=== PATIENT | female | born 1930 | race Caucasian/White ===

== ENCOUNTER 2016-11-16 22:05 | Inpatient (IN) | payer OTHER ==
[~2016-11-16] VITALS: Ht 157.5 cm; Wt 38.6 kg
--- NOTE | ~2016-11-16 | EKG ---
[address] [address] ELECTROCARDIOGRAM REPORT Name: RACHANA SANTILLAN Room #: 438-P ADM IN M.R.#: [id number] Admission: 11/16/16 Attend Phys: Chica Heaton MD Discharge: Date of : [birth year] Report #: [id number] THIS REPORT FOR: //name// [facility] ED Test Date: 2016-11-16 Test Time: 22:15:07 Pat Name: RACHANA SANTILLAN Department: Room: 438 P Gender: F Business Technology Analyst: MARIAM : 1930 Requested By: Radha Logan Order Number: [id number] MD: Doug Kauffman Measurements Intervals [place] Rate: 72 P: 77 AK: 152 QRS: 27 QRSD: 87 T: -18 QT: 387 QTc: 424 Interpretive Statements Sinus rhythm Consider inferior infarct Nonspecific ST and T wave abnormality Compared to ECG 05/15/2016 16:33:33 Myocardial infarct finding now present Sinus tachycardia no longer present Ventricular premature complex(es) no longer present Electronically Signed On 11-19-2016 8:27:28 TELEPHONE SERVICE ADVISER by Doug Kauffman [email or web address] <ELECTRONICALLY SIGNED> By: Doug Kauffman MD, [facility] 11/19/16 0827 2215 2215 Doug Kauffman MD, [facility] /EPI
--- NOTE | ~2016-11-16 | EKG ---
[address] [place] [address] ELECTROCARDIOGRAM REPORT Name: RACHANA SANTILLAN Room #: 438-P ADM IN M.R.#: [id number] Admission: 11/16/16 Attend Phys: Chica Heaton MD Discharge: Date of : [birth year] Report #: [id number] THIS REPORT FOR: //name// [facility] ED Test Date: 2016-11-16 Test Time: 22:17:08 Pat Name: RACHANA SANTILLAN Department: Room: [facility] Gender: F Cable Lacer: MARIAM : 1930 Requested By: Radha Logan Order Number: [id number] MD: Doug Kauffman Measurements Intervals [place] Rate: 69 P: 1 OR: 149 QRS: 16 QRSD: 95 T: -76 QT: 360 QTc: 386 Interpretive Statements Sinus rhythm 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
[~2016-11-16 22:05] MED LIST: ADVAIR 250-501 EACH INH; BISACODYL SUPP10 MG RECTAL; CARVEDILOL6.25 MG PO; CLONAZEPAM 0.50.5 M1 PO; COREG6.25 MG; DIGOXIN125 MCG PO; HYDROCODONE-AP1 EAC6 PO; LEVOTHYROXIN0.075 MG PO; LISINOPRIL10 MG PO; SPIRIVA INH; SPIRIVA18 MCG INH; VENTOLIN HFA 1818 GM INH; XARELTO10 MG
[2016-11-16 22:06] VITALS: BP 132/71
[2016-11-16] MEDS ORDERED: COMBIVENT INH (22:21)
[2016-11-16] MEDS ORDERED: CENTRUM SILVER1 EAC4 PO (22:25)
[2016-11-16] MEDS ORDERED: ASPIR 8181 MG PO (22:25)
[2016-11-16] MEDS ORDERED: FOLIC ACID1 MG PO (22:26)
[2016-11-16] MEDS ORDERED: CALCIUM 500 +1 EAC5 (22:27)
[2016-11-16] MEDS ORDERED: LUTEIN40 MG (22:27)
[2016-11-16 22:40] LABS: ABSOLUTE NEUTROPHILS 3.5 thou/uL (1.4-8.2); BASOPHILS 0.8 % (0.0-2.0); EOSINOPHILS 10.2 % (0.0-3.0); HEMATOCRIT 43.7 % (37.0-47.0); HEMOGLOBIN 14.9 gm/dL (12.0-15.0); LYMPHOCYTES 39.5 % (24.0-44.0); MCH 33.1 pg (26.0-34.0); MCHC 34.2 % (28.0-37.0); MCV 96.8 fL (80.0-100.0); MONOCYTES 10.8 % (1.0-8.0); PLATELET COUNT 212 thou/uL (150-400); POLYS 38.7 % (36.0-66.0); RBC 4.52 mil/uL (4.20-5.00); RDW 13.9 % (10.5-14.5); WBC 8.9 thou/uL (4.0-11.0)
[2016-11-16 22:44] LABS: MANUAL DIFF NO
[2016-11-16 22:48] LABS: ANION GAP 11 mmol/L (7-16); BUN 6 mg/dL (7-18); CALCIUM 9.8 mg/dL (8.5-10.1); CHLORIDE 93 mmol/L (98-107); CO2 29 mmol/L (21-32); CREATININE 0.6 mg/dL (0.6-1.3); GLUCOSE 105 mg/dL (70-99); SODIUM 133 mmol/L (136-145)
[2016-11-16 22:57] LABS: TROPONIN-I < 0.04 ng/mL (<0.04-0.07)
[2016-11-17] VITALS (8 sets, daily range): BP systolic 105–156; BP diastolic 54–76
[2016-11-17 01:03] LABS: URINE BILIRUBIN NEGATIVE (Negative); URINE BLOOD NEGATIVE (Negative); URINE COLOR YELLOW; URINE GLUCOSE-RANDOM* NEGATIVE (Negative); URINE KETONES NEGATIVE (Negative); URINE NITRITE NEGATIVE (Negative); URINE PROTEIN (DIPSTICK) NEGATIVE (Negative); URINE SPECIFIC GRAVITY <= 1.005 (1.003-1.035); URINE UROBILINOGEN 0.2 E.U./dl (0.2-1.0)
[2016-11-17 01:16] LABS: BACTERIA None Seen /HPF (None Seen); CASTS None Seen /LPF (None Seen); CRYSTALS None Seen /LPF (None Seen); SQUAMOUS None Seen /LPF (0-3); URINE RBC None Seen /HPF (0-2); URINE WBC 0-5 Rare /HPF (0-5)
[2016-11-17 06:17] LABS: HEMATOCRIT 37.3 % (37.0-47.0); MCH 32.8 pg (26.0-34.0); MCHC 34.2 % (28.0-37.0); RBC 3.88 mil/uL (4.20-5.00); RDW 13.5 % (10.5-14.5); WBC 7.3 thou/uL (4.0-11.0)
[2016-11-17 06:25] LABS: HEMOGLOBIN 12.7 gm/dL (12.0-15.0)
[2016-11-17 06:40] LABS: CALCIUM 9.3 mg/dL (8.5-10.1); CREATININE 0.4 mg/dL (0.6-1.3); POTASSIUM 4.5 mmol/L (3.5-5.1)
[2016-11-18] VITALS (8 sets, daily range): BP systolic 115–133; BP diastolic 59–78
[2016-11-19 03:15] VITALS: BP 124/72
[2016-11-19 08:00] VITALS: BP 127/69
[2016-11-19 12:00] VITALS: BP 126/77
[2016-11-19 13:08] VITALS: BP 126/77
== END 2016-11-19 14:15 | disposition home or self-care (01) | DRG 896 ==
LOC: ER 22:05 → 4S 23:48 → EROBS 23:48 → 4S 11-17 00:21
PROVIDERS: Emergency Medicine
DX: F10.129 Alcohol abuse with intoxication, unspecified (principal); E43 Unspecified severe protein-calorie malnutrition; I50.32 Chronic diastolic (congestive) heart failure; E46 Unspecified protein-calorie malnutrition; Z68.1 Body mass index [BMI] 19.9 or less, adult; Z60.2 Problems related to living alone; I11.0 Hypertensive heart disease with heart failure; D57.1 Sickle-cell disease without crisis; J44.9 Chronic obstructive pulmonary disease, unspecified; Z96.611 Presence of right artificial shoulder joint; I95.1 Orthostatic hypotension; Z87.891 Personal history of nicotine dependence; Z79.899 Other long term (current) drug therapy; Z79.82 Long term (current) use of aspirin; Z98.890 Other specified postprocedural states; Z95.810 Presence of automatic (implantable) cardiac defibrillator; Z91.81 History of falling
CPT/HCPCS: 10100

== ENCOUNTER 2017-10-10 23:24 | Observation (INO) | payer OTHER ==
[~2017-10-10] VITALS: Ht 162.6 cm; Wt 37.6 kg
--- NOTE | ~2017-10-10 | HC ---
[facility] [place] [address] CONSULTATION Name: RACHANA SANTILLAN Room #: [facility] M.R.#: [id number] Admission: 10/11/17 Attend Phys: Charles Zapata Discharge: Date of : [birth year] Report #: [id number] THIS REPORT FOR: //name// CC: FAM unknown Charles Zapata DATE OF SERVICE: 10/11/2017 REASON FOR CONSULTATION: Right clavicle fracture and L2 compression fracture. HISTORY OF PRESENT ILLNESS: This is an 86-year-old female with frequent falls, previous right shoulder replacement, right hip intertrochanteric fracture and right elbow ORIF. She sustained another fall and has been complaining of pain in her low back, her right clavicle and her right hip. She has been admitted for treatment. PAST MEDICAL HISTORY: Significant for right olecranon proximal fracture, right intertrochanteric hip fracture, treated with IM nail, right shoulder hemiarthroplasty, syncope, and rhabdomyolysis. CURRENT MEDICATIONS: Have been reviewed and are on the chart. PHYSICAL EXAMINATION: GENERAL: This is a frail-appearing female, in no acute distress. She is alert, oriented, pleasant, and cooperative. EXTREMITIES: Examination of the right upper extremity shows her to have extreme tenderness to palpation of her medial clavicle. She has minimal pain with passive range of motion of the shoulder. She is neurologically intact. Examination of the lumbar spine shows her to be tender to palpation midline in her lumbar spine. She is neurologically intact distally. She does have pain with range of motion of her lumbar spine. Examination of the right hip shows her to have a contusion over her lateral hip with some fullness of the skin suggesting an underlying hematoma. There is no breakage in the skin. She has minimal pain with range of motion of the hip. X-ray examination three-view of the lumbar spine shows her to have a L2 compression fracture with less than 25% loss of vertebral height. X-ray of the right clavicle shows her to have a nondisplaced right medial clavicle fracture. X-ray of the right hip shows her to have a previous intertroch hip fracture, treated with IM nail with no new fractures or dislocations. She does have healing pubic rami fractures also. ASSESSMENT: 1. Right medial clavicle fracture. 2. L2 compression fracture with less than 25% loss of height. 3. Right hip contusion. [address] [address] CONSULTATION Name: RACHANA SANTILLAN Room #: 423-1 [facility] Linda#: [id number] Admission: 10/11/17 Attend Phys: Charles Zapata Discharge: Date of : [birth year] Report #: [id number] PLAN: All of these injuries are nonoperative treatment. I do not think kyphoplasty or vertebroplasty is needed in this case given the minimal loss of height. Her medial clavicle fracture should heal uneventfully. She can wear a sling on her right upper extremity as needed. The contusion of her hip should resolve on its own with time. She can be weightbearing as tolerated on the right lower extremity. Therapy will be consulted to mobilize her. She may need placement in a nursing facility secondary to the combination of these injuries and difficulty with mobilization. She can follow up with me in 3 weeks for repeat x-ray examination of these injuries. We will sign off; however, please call if there are any questions or concerns. By: 1214 [id number] Adam Albright MD /nt
[2017-10-10 23:24] VITALS: BP 157/84
[~2017-10-10 23:24] MED LIST changes: +ASPIR 8181 MG PO; +CALCIUM 500 +1 EAC5; +CENTRUM SILVER1 EAC4 PO; +COMBIVENT INH; +FOLIC ACID1 MG PO; +LUTEIN40 MG
[2017-10-11] MEDS ORDERED: TRAMADOL 50 MG50 MG PO (01:07)
[2017-10-11 01:13] LABS: PROTIME 10.5 Seconds (9.3-11.4)
[2017-10-11 01:40] LABS: CALCIUM 9.7 mg/dL (8.5-10.1); CREATININE 0.7 mg/dL (0.6-1.0); POTASSIUM 4.1 mmol/L (3.5-5.1)
[2017-10-11 01:50] LABS: HEMATOCRIT 42.1 % (37.0-47.0); HEMOGLOBIN 13.9 gm/dL (12.0-15.0); MCH 31.6 pg (26.0-34.0); MCV 95.8 fL (80.0-100.0); RBC 4.4 mil/uL (4.20-5.00); WBC 11.7 thou/uL (4.0-11.0)
[2017-10-11 02:39] VITALS: BP 126/73
[2017-10-11 03:17] VITALS: BP 91/53
[2017-10-11 03:34] VITALS: BP 130/69
[2017-10-11 09:00] VITALS: BP 124/71
[2017-10-11 15:55] VITALS: BP 112/54
[2017-10-11 20:00] VITALS: BP 134/70
[2017-10-12 03:22] VITALS: BP 143/66
[2017-10-12 03:47] LABS: HEMATOCRIT 35.8 % (37.0-47.0); MCH 31.9 pg (26.0-34.0); MCHC 33.2 g/dL (28.0-37.0); MCV 96.2 fL (80.0-100.0); RBC 3.72 mil/uL (4.20-5.00); RDW 12.8 % (10.5-14.5); WBC 7.2 thou/uL (4.0-11.0)
[2017-10-12 03:52] LABS: HEMOGLOBIN 11.9 gm/dL (12.0-15.0)
[2017-10-12 04:00] LABS: CALCIUM 8.7 mg/dL (8.5-10.1); CREATININE 0.6 mg/dL (0.6-1.0); POTASSIUM 3.9 mmol/L (3.5-5.1)
[2017-10-12 07:15] VITALS: BP 146/68
[2017-10-12] MEDS ORDERED: CLONAZEPAM 0.50.5 M1 PO (09:33)
[2017-10-12] MEDS ORDERED: ACETAMINOPHEN325 M1 PO (09:33)
[2017-10-12] MEDS ORDERED: TRAMADOL 50 MG50 MG PO (09:33)
== END 2017-10-12 11:35 ==
LOC: ER 23:24 → EROBS 10-11 01:37 → 4E 10-11 02:57
PROVIDERS: Emergency Medicine; Nurse Practitioner Family
DX: S32.029A Unspecified fracture of second lumbar vertebra, initial encounter for closed fracture (principal); S42.011A Anterior displaced fracture of sternal end of right clavicle, initial encounter for closed fracture; I11.0 Hypertensive heart disease with heart failure; I50.30 Unspecified diastolic (congestive) heart failure; F41.9 Anxiety disorder, unspecified; E03.9 Hypothyroidism, unspecified; J44.9 Chronic obstructive pulmonary disease, unspecified; Z87.891 Personal history of nicotine dependence; Z96.611 Presence of right artificial shoulder joint; Z91.81 History of falling; W18.30XA Fall on same level, unspecified, initial encounter; Y93.89 Activity, other specified; Y92.090 Kitchen in other non-institutional residence as the place of occurrence of the external cause; Y99.8 Other external cause status